=== PATIENT | female | born 1970 | race Caucasian/White ===

== ENCOUNTER 2021-07-02 13:07 | Emergency (ER) | payer BC ==
--- OUTSIDE RECORDS SUMMARY | 2021-07-02 13:10 | XMS REPORT | Continuity of Care Document ---
:1970 Author Organization [facility] t Address [address] [place] [address] Care Team Providers Name Role Phone Meghana Primary Care Physician Unavailable Chau HANEY Attending Clinician Anisha Attending Clinician Unavailable CHAU Attending Clinician Unavailable ADDI_ Attending Clinician Unavailable Kit Sarah Attending Clinician Unavailable Maricarmen Attending Clinician Unavailable Kathleen Attending Clinician Unavailable TIAGO Attending Clinician Unavailable Anisha Admitting Clinician Unavailable ADDI_ Admitting Clinician Unavailable Maricarmen Admitting Clinician Unavailable Kathleen Admitting Clinician Unavailable TIAGO Admitting Clinician Unavailable Payers Payer Name Policy Type Policy Number Effective Date Expiration Date S [place] [id number] 2019 00:[place]00 [place] CHO[place] [id number] 2013 00:00:00 (POS II) Problems This patient has no known problems. Allergies, Adverse Reactions, Alerts This patient has no known allergies or adverse reactions. Social History Social Habit Start Date Stop Date Quantity Comments Source Exposure to Not sure [facility] SARS-CoV-2 (event) Alcohol intake 2021-06-30 2021-06-30 Lifetime [facility] 00:00:00 00:00:00 non-drinker (finding) Tobacco use and 2021-05-17 2021-05-17 Smokeless tobacco [facility] exposure 00:00:00 00:00:00 non-user Sex Ass[birth year] At [birth year] [facility] 00:00:00 00:00:00 Smoking Status Start Date Stop Date Source Never smoked tobacco [facility] Medications Ordered Filled Start Stop Current Ordering Indication Dosage Frequency Signature Comments Components Source Medication Medication Date Date Medication? Clinician (SIG) Name Name furosemide Yes Take by [facility] (Lasix) 20 3-30 mouth if Healt h MG tablet 15:53: needed. 26 Reports she takes it if she feels increased pressure in abdomen or legs per Dr. Antonio's instructio ns Potassium Yes Take by UT Chloride 20 3-30 mouth if Heal th MEQ/15ML 15:52: needed. (10%) 37 Reports solution she takes with Furosemide 20mg, PRN Semaglutide 2021- No Inject UT (OZEMPIC, 1 3-30 -30 under the He alth MG/DOSE, 15:36: 00:00 skin. Once SC) 49 :00 a week aspirin 81 0 Yes QD 1 (one) UT MG chewable 3-30 time each Hea lth tablet 15:25: day. 06 digoxin Yes QD 1 (one) UT (Lanoxin) 3-30 time each Healt h 125 MCG 15:25: day. tablet 06 spironolact Yes Q.5D 2 (two) UT one 3-30 times a Health (Aldactone) 15:25: day. 25 MG 06 tablet etonogestre Yes 1{each} Q28D Insert 1 UT l-ethinyl 3-30 each into [facility] estradiol 15:25: the vagina (Nuvaring) 06 every 28 0.12-0.015 (twenty-ei MG/24HR ght) days. vaginal Insert ring vaginally and leave in place for 3 consecutiv e weeks, then remove for 1 week. metoprolol Yes 50mg Q.5D Take 50 mg U T succinate 1-07 by mouth 2 Heal th XL 00:00: (two) (Toprol-XL) 00 times a 50 MG 24 hr day. tablet amiodarone 2020-04 Yes Q.5D Take by UT (Pacerone) 2-15 mouth 2 Health 400 MG 00:00: (two) tablet 00 times a day. Entresto 2020-04 Yes Q.5D 2 (two) UT 49-51 MG 0-20 times a Health tablet 00:00: day. 00 Farxiga 5 2020-04 Yes QD 1 (one) UT MG 0-12 time each Health 00:00: day. 00 buPROPion Yes 1 (one) UT XL 9-20 time each Health (Wellbutrin 00:00: day in the XL) 150 MG 00 morning. 24 hr tablet Vital Signs Vital Name Observation Time Observation Value Comments Source Systolic blood pressure 2021-06-30 20:25:00 125 mm[Hg] [facility] Diastolic blood pressure 2021-06-30 20:25:00 69 mm[Hg] [facility] Heart rate 2021-06-30 20:25:00 80 /min [facility] Body height 2021-06-30 20:25:00 162.6 cm [facility] Body weight 2021-06-30 20:25:00 100.699 kg UT [facility] BMI 2021-06-30 20:25:00 38.11 kg/m2 [facility] Procedures Procedure Date / Time Performed Performing Clinician [facility] e ECG 12-LEAD 2021-06-30 20:25:00 Nico Ritchie [facility] Encounters Start End Encounter Admission Attending Care Care Encounter Source Date/Time Date/Time Type Type Clinicians Facility Department ID 2021-06-30 2021-06-30 Office GULSHAN Ritchie [id number] [place] 15:15:00 16:28:14 Visit Nico KIRAN [id number] [facility] [id number] 2021-06-15 2021-06-15 Outpatient [facility] PRIV PRIV [id number] [facility] 09:59:00 09:59:00 Dg [id number] Medica l 2021-05-07 2021-05-07 Outpatient [facility] [id number] [facility] 06:04:00 13:00:00 [facility] 2021-02-03 2021-02-03 Outpatient [facility] [id number] [facility] 05:41:00 15:28:00 [facility]ICO [facility]anez [facility] 2020-12-24 2020-12-24 Outpatient GONZALEZ_DO [facility] [id number] Silvio 03:08:00 03:08:00 SCOTT_ [id number] [facility] 2020-11-30 2020-11-30 Outpatient Yan_W MM[facility] MMG [id number] [place] 02:51:00 02:51:00 [facility] 2020-02-19 2020-02-19 Outpatient Kathleen [facility] MMG [id number] [place] 02:22:00 02:22:00 [facility]8 [facility] Results Test Description Test Time Test Comments Results Result Comments Source B-Type Natriuretic Peptide 2016-09-12 11:33:00 Test Item Value Reference Range Interpretation Comme nts B-Type Natriuretic Peptide (test code = 649562) <2.5 pg/mL 0.0-10 0.0 N Sed Rate ESR ([place])2016-09-09 00:24:00 Test Item Value Reference Range Interpretation Comments ESR (test code = HESR) 34 mm/Hr 0-20 H Comprehensive Metabolic [id number] 23:32:00 Test Item Value Reference Range Interpretation Comments Sodium (test code = 139 mmol/L 135-145 N NA) Potassium (test 2.8 mmol/L 3.5-5.1 LL READ BACK LA B code = K) VALUESVERIFIED BY REPEAT TESTING na @1131am 6/8/201 7 kms Chloride (test code 94 mmol/L 98-105 L = CL) Carbon Dioxide 27 mmol/L 22-29 N (test code = CO2) Glucose (test code 104 mg/dL 70-115 N = GLU) Blood Urea Nitrogen 9 mg/dL 6-20 N (test code = BUN) Creatinine (test 0.7 mg/dL 0.5-0.9 N code = CREAT) Calcium (test code 9.2 mg/dL 8.3-10.5 N = CA) Prot Total (test 7.8 g/dL 6.4-8.3 N code = TP) Albumin (test code 4.8 g/dL 3.5-5.2 N = ALB) A/G Ratio (test 1.6 Ratio code = AGRATIO) Globulin (test code 3.0 2.9-3.1 N = GLOB) Bili Total (test 0.4 mg/dL 0.1-0.9 N code = TBIL) Alk Phos (test code 51 U/L 35-104 N = APHOS) AST (test code = 20 U/L 1-32 N AST) ALT (test code = 18 U/L 1-33 N ALT) BUN/Creatinine 12.9 Ratio (test code = BCRATIO) Anion Gap (test 18 mmol/L 7-16 H code = AGAP) Estimated GFR (test >60 eGFR (es timated code = GFR) mL/min/1.73m2 Glomerular [place] tration Rate) is an est imated value,calculate d from the patient's s lucas creatinine usin g the MDRD equation.I t is NOT the patient 's actual GFR. The eGFR provides a more clinicallyusefu l measure of kidn ey disease than se rum creatinine alone.This calculation deborah es sex and race into a ccount, if the informat ionis provided. If th e race is not provided , and the patient isAfrican-Ameri can, multiply by 1.2 12. If sex is not prov ided, and thepatient is female, multipl y by 0.742. Results for patients <18 ye ars ofage have not been validated by th e MDRD study and shoul d be interpretedwith caution.eGFR Re sult Interpretation: eGFR > or = 60 is in t he Normal RangeeGF R < 60 may mean kidney diseaseeGFR < 1 5 may mean kidney failureRange s recommended by the National Kidney Foundation,http ://nkde p.nih.gov Lipid [id number] 23:32:00 Test Item Value Reference Range Interpretation Comments Cholesterol (test 247 mg/dL 0-200 H code = CHOL) Triglycerides (test 333 mg/dL 9-200 H code = TRIG) HDL (test code = 81 mg/dL 50-60 H HDL) Chol/HDL (test code 3.0 Ratio 0.0-4.4 N = CHOLPHDL) LDL, Calculated 99 0-130 N (NOTE)RISK O F HEART (test code = LDLC) DISEASEPu blished by [place] Heart AssociationAnal yte Optim al Boderline Increased RiskC HOL <200 200-239 >240TRI G <150 150-199 >200HDL Male: >60 <40HDL Female: >60 <50 LDL < 100 130-15 9 >160 LDL NEAR OPTIMAL IS 100- 129 VLDL (test code = 67 mg/dL 5-40 H VLDL) LDL/HDL (test code = 1 LDLPHDL) Thyroid Stimulating Hormone (TSH)2016-09-08 23:32:00 Test Item Value Reference Range Interpretation Comments TSH (test code = TSH) 2.24 mIU/mL 0.270-4.200 N CBC with [id number] 23:01:00 Test Item Value Reference Range Interpretation Comments WBC (test code = WBC) 9.3 K/cumm 4.4-10.5 N RBC (test code = RBC) 4.69 M/cumm 3.75-5.20 N Hemoglobin (test code = HGB) 14.1 gm/dL 12.2-14.8 N Hematocrit (test code = HCT) 45.0 % 36.5-44.4 H MCV (test code = MCV) 96.0 fL 80-100 N MCH (test code = MCH) 30.0 pg 27.0-32.5 N MCHC (test code = MCHC) 31.3 g/dL 32.0-37.5 L RDW (test code = RDW) 14.2 % 11.5-14.5 N Platelet Count (test code = 269 K/cumm 140-440 N PLTCT) MPV (test code = MPV) 11.3 fL Diff Method (test code = DIFFM) Auto Neutrophil (test code = NEUT) 59.8 % 36-70 N Lymphocyte (test code = LYMPH) 33.5 % 12-44 N Monocyte (test code = MONO) 4.7 % 0-11 N Eosinophil (test code = EOS) 1.5 % 0-7 N Basophil (test code = BASO) 0.5 % 0-2 N Neutro Abs (test code = ANEUT) 5.6 K/cumm 1.6-7.4 N Lymph Abs (test code = ALYMPH) 3.1 K/cumm 0.5-4.6 N Porter Abs (test code = AMONO) 0.4 K/cumm 0.0-1.2 N Eos Abs (test code = AEOS) 0.14 K/cumm 0.00-0.74 N Baso Abs (test code = ABASO) 0.1 K/cumm 0.00-0.21 N EKG Electrocardiogram [id number] [place] [address] Patient Name: David Coy Medical Record#: [id number] Address: [address] [place] [address] City/State/Zip: [place] [address]: Demetris Sarah MD Insurance: [facility] PPO Blue [place] /Age/Sex: 1970/50/F Self Pay Admit/Reg Date: 12/11/20 OrderingDr: Demetris Sarah MD [facility] PCP: Silviano Antonio MD Date of Service: 12/11/20 Order (s): EKG Electrocardiogram CPT Code: 17334 Report Number: [id number] Reason for Exam: ICD placement Sinus rhythm Left bundle branch block Summary: Abnormal ECG I44.7 Dictated By: Do aminah Douglass MD 12/11/20 1133 Signed By:Jesus Manuel Douglass MD 12/11/20 1604 TD/TT: 12/11/20 1133 Tech: [facility] cc: [email or web address]; L IBBA* Silviano Antonio MD; SACHIN North chest 1V [facility] [address] [place], [place] [id number] Patient Name: David Thompson i Medical Record#: [id number] Address: [address] City/State/Zip: [place] [address]: Demetris Sarah MD Insurance: [facility] PPO Blue [place] /Age/Sex: 1970/50/F Self Pay Admit/Reg Date: 12/11/20 OrderingDr: Demetris Sarah MD Location: [facility]/ PCP: Silviano Antonio MD Date of Service: 12/11/20 Order (s): XR chest 1V CPT Code: 17224 Report Number: [id number] Reason for Exam: ICD placement C3 TIME OF STUDY: 12/11/2020 11:38 AM CDT REASON FOR EXAM: ICD placement COMPARISON: None. FINDINGS: AP view of the chest was obtained. Support devices: Left-sided pacemaker/ICD in place with one lead overlying the RA and one lead overlying the RV. Lungs: Normal lung volume. No mass, or consolidation. Mild central vascular congestion. Pleura: No pleural effusion or pneumothorax. Heart and Mediastinum: There is mild cardiomegaly. Bones: Normal regional skeletal structures. IMPRESSION: 1. Mild cardiomegaly and central vascular congestion. 2. Left-sided pacemaker/ICD in place. No pneumothorax. Electronically signed by: Nathaniel Coronado MD 12/11/2020 11:44 AM CDT Dictated By: Nathaniel Coronado MD 12/11/20 1138 Signed By: Nathaniel Coronado MD 12/11/20 1138 TD/TT: Tech: [id number] cc: HANGAngel; STEFANY* Silviano Antonio MD; Demetris Sarah MDEKG Electrocardiogram [facility] [address] [place] [address] Patient Name: David Coy Medical Record#: [id number] Address: [address] City/State/Zip: [place] [address]: Demetris Sarah MD Insurance: [facility] PPO Blue [place] ice /Age/Sex: 1970/50/F Self Pay Admit/Reg Date: 12/11/20 OrderingDr: Demetris Sarah MD Location: [facility]/ PCP: Silviano Antonio MD Date of Service: 12/11/20 Order (s): EKG Electrocar diogram CPT Code: 59711 Report Number: [id number] Reason for Exam: ICD placement Sinus rhythm Nonspecific IVCD with LBBB PATTERN LVH with secondary repolarization abnormality Summary: Abnormal ECG I51.7 Dictated By: Jesus Manuel Douglass MD 12/11/20 0744 Signed By: Jesus Manuel Douglass MD 12/11/20 1604 TD/TT: 12/11/2044 Tech: [facility] cc: [id number]; NIRMALBA* Silviano Antonio MD; Demetris Sarah MD
[2021-07-02] MEDS ORDERED: CLOPIDOGREL 75 MG TABLET ONE (15:16)
[2021-07-02] MEDS ORDERED: FOLIC ACID 5 MG/ML VIAL ONE (15:17)
[2021-07-02] MEDS ORDERED: ASPIRIN 81 MG CHEWABLE TABLET ONE (15:18)
[2021-07-02 15:21] LABS: Absolute Lymphocytes (CBC) 2.7 K/uL (0.7-4.9); Hematocrit 39.6 % (36.0-45.0); Lymphocytes % 32.1 % (15.3-44.8); MPV 7.6 fL (7.6-11.3); RBC Red Blood Cell Count 4.28 M/uL (3.86-4.86)
--- NOTE | 2021-07-02 15:22 | ER ---
Nurse's Notes [facility] Name: Lucia Coy Age: 51 yrs Sex: Female : 1970 Arrival Date: 07/02/2021 Time: 13:08 Bed 27 Private MD: Diagnosis: Unqualified visual loss, left eye, normal vision right eye-resolved Presentation: 07/02 13:19 Chief complaint: Patient states: "I have dilated cardiomyopathy and its been giving me ab2 trouble. On Monday my defib went off and I went to the ER and they told me I had a heart attack, because my potassium and magnesium were too low. Today I was driving and my left eye went completely black, I couldn't see anything." Pt states this lasted approx 4 minutes, but is back to normal at this time. Pt denies chest pain. Pt states she is SOB. Coronavirus screen: Vaccine status: Patient reports receiving the 2nd dose of the covid vaccine. Client denies travel out of the [place] in the last 14 days. At this time, the client does not indicate any symptoms associated with coronavirus-19. Ebola Screen: Patient negative for fever greater than or equal to 101.5 degrees Fahrenheit, and additional compatible Ebola Virus Disease symptoms Patient denies exposure to infectious person. Patient denies travel to an Ebola-affected area in the 21 days before illness onset. No symptoms or risks identified at this time. Initial Sepsis Screen: Does the patient meet any 2 criteria? No. Patient's initial sepsis screen is negative. Does the patient have a suspected source of infection? No. Patient's initial sepsis screen is negative. Risk Assessment: Do you want to hurt yourself or someone else? Patient reports no desire to harm self or others. Onset of symptoms is unknown. 13:19 Method Of Arrival: Ambulatory ab2 13:19 Acuity: EDER 3 ab2 Triage Assessment: 13:27 General: Appears in no apparent distress. comfortable, Behavior is calm, cooperative, ab2 appropriate for age. Pain: Denies pain. EENT: No deficits noted. Neuro: Level of Consciousness is awake, alert, obeys commands, Oriented to person, place, time, situation, Appropriate for age [employer] are equal bilaterally. Cardiovascular: Reports shortness of breath, Denies chest pain. Respiratory: Reports shortness of breath cough that is. Historical: - Allergies: 13:25 No Known Allergies; ab2 - PMHx: 13:26 Dilated Cardiomyopathy; ab2 - Immunization history:: Adult Immunizations up to date. - Social history:: Smoking status: Patient denies any tobacco usage or history of. Screenin:09 Abuse screen: Denies threats or abuse. Denies injuries from another. Nutritional ld1 screening: No deficits noted. Tuberculosis screening: No symptoms or risk factors identified. Fall Risk None identified. Assessment: 15:09 General: Appears in no apparent distress. comfortable, Behavior is calm, cooperative, ld1 appropriate for age. Pain: Denies pain. Neuro: Level of Consciousness is awake, alert, obeys commands, Oriented to person, place, time, situation. Cardiovascular: Capillary refill < 3 seconds Patient's skin is warm and dry. Respiratory: Airway is patent Respiratory effort is even, unlabored. GI: Abdomen is round non-distended. : No signs and/or symptoms were reported regarding the genitourinary system. EENT: No signs and/or symptoms were reported regarding the EENT system. Derm: No signs and/or symptoms reported regarding the dermatologic system. Musculoskeletal: No signs and/or symptoms reported regarding the musculoskeletal system. 17:50 Reassessment: Patient appears in no apparent distress at this time. No changes from ld1 previously documented assessment. Patient and/or family updated on plan of care and expected duration. Pain level reassessed. Patient is alert, oriented x 3, equal unlabored respirations, skin warm/dry/pink. Vital Signs: 13:19 BP 117 / 59; Pulse 70; Resp 17; Temp 98.4(TE); Pulse Ox 99% on R/A; Weight 98.88 kg; ab2 Height 5 ft. 4 in. (162.56 cm); Pain 0/10; 15:09 BP 123 / 63; Pulse 70; Resp 19; Pulse Ox 100% on R/A; ld1 17:50 BP 119 / 70; Pulse 69; Resp 18; Pulse Ox 100% ; ld1 13:19 Body Mass Index 37.42 (98.88 kg, 162.56 cm) ab2 ED Course: 13:08 Patient arrived in ED. as 13:25 Triage completed. ab2 13:27 Arm band placed on right wrist. ab2 13:50 Gino Vickers PA is PHCP. cp 13:50 Christiano Mccoy MD is Attending Physician. cp 14:05 Susu Garcia, RN is Primary Nurse. ld1 14:34 CT Head Brain wo Cont In Process Unspecified. EDMS 15:09 Patient has correct armband on for positive identification. Placed in gown. Bed in low ld1 position. Call light in reach. Side rails up X2. cardiac monitor on. Pulse ox on. NIBP on. Door closed. Noise minimized. Warm blanket given. 15:09 No provider procedures requiring assistance completed. Inserted saline lock: 22 gauge ld1 in right antecubital area, using aseptic technique. Blood collected. 15:58 XRAY Chest (1 view) In Process Unspecified. EDMS 16:10 CT Head Angio In Process Unspecified. EDMS 16:10 CT Neck Angio In Process Unspecified. EDMS Administered Medications: 15:21 Drug: foLIC Acid 1 mg Route: IVPB; Site: right antecubital; ld1 15:21 Drug: Aspirin Chewable Tablet 81 mg Route: PO; ld1 15:21 Drug: PlaVIX (clopidogrel) 75 mg Route: PO; ld1 Outcome: 15:22 ER care complete, transfer ordered by MD. cp 18:12 Patient left the ED. ld1 Signatures: Dispatcher [employer] Melany Boyd as Gino Vickers PA PA cp Susu Garcia, RN RN ld1 Constantin Muñiz ab2
--- NOTE | 2021-07-02 15:22 | EDPHYS ---
Physician Documentation [facility] Name: Lucia Coy Age: 51 yrs Sex: Female : 1970 Arrival Date: 07/02/2021 Time: 13:08 Bed 27 Private MD: ED Physician Christiano Mccoy HPI: 07/02 14:25 This 51 yrs old Unknown Female presents to ER via Ambulatory with complaints of Loss Of cp Vision. 14:25 The patient is experiencing sudden loss of vision, to the left eye. cp 14:25 Onset: The symptoms/episode began/occurred today, at about 1239. Duration: the symptoms cp last 4 minute(s). Associated signs and symptoms: Pertinent positives: "tingling" to roof of mouth, Pertinent negatives: fever, chest pain, weakness, speech changes. Patient does not utilize any form of vision correction. Severity of symptoms: in the emergency department the symptoms have resolved. Historical: - Allergies: 13:25 No Known Allergies; ab2 - PMHx: 13:26 Dilated Cardiomyopathy; ab2 - Immunization history:: Adult Immunizations up to date. - Social history:: Smoking status: Patient denies any tobacco usage or history of. ROS: 14:30 Constitutional: Negative for body aches, chills, fever, poor PO intake. cp 14:30 Eyes: Positive for vision loss, of the left eye, Negative for discharge, pain, redness. cp 14:30 ENT: Negative for drainage from ear(s), ear pain, sore throat, difficulty swallowing, difficulty handling secretions. 14:30 Respiratory: Negative for cough, shortness of breath, wheezing. 14:30 Cardiovascular: Negative for chest pain, edema, palpitations. cp 14:30 Abdomen/GI: Negative for abdominal pain, nausea, vomiting, and diarrhea. cp 14:30 Neuro: Negative for altered mental status, headache, weakness. 14:30 All other systems are negative. Exam: 14:35 Constitutional: The patient appears in no acute distress, alert, awake, comfortable, cp non-diaphoretic, non-toxic, well developed, well nourished. 14:35 Head/Face: Normocephalic, atraumatic. cp 14:35 Eyes: Periorbital structures: appear normal, Pupils: equal, round, and reactive to light and accomodation, Extraocular movements: intact throughout, Conjunctiva: normal, no exudate, no injection, Sclera: no appreciated abnormality, Lids and lashes: appear normal, bilaterally, Visual norris: are intact. 14:35 ENT: External ear(s): are unremarkable, Nose: is normal, Mouth: Lips: moist, Oral mucosa: moist, Posterior pharynx: Airway: no evidence of obstruction, patent. 14:35 Neck: ROM/movement: is normal, is supple, without pain, no range of motions limitations, no nuchal rigidity. 14:35 Chest/axilla: Inspection: normal. 14:35 Cardiovascular: Rate: normal, Rhythm: regular. 14:35 Respiratory: the patient does not display signs of respiratory distress, Respirations: normal, no use of accessory muscles, no retractions, labored breathing, is not present, Breath sounds: are clear throughout, no decreased breath sounds, no stridor, no wheezing. 14:35 Abdomen/GI: Exam negative for discomfort, distension, guarding, Inspection: abdomen appears normal. 14:35 Back: pain, is absent, ROM is normal. 14:35 Skin: cellulitis, is not appreciated, no rash present. 14:35 Neuro: Orientation: to person, place \\T\\ time. Mentation: is normal, Cerebellar function: is grossly normal, Motor: moves all fours, strength is normal, Sensation: no obvious gross deficits. 14:50 ECG was reviewed by the Attending Physician. cp Vital Signs: 13:19 BP 117 / 59; Pulse 70; Resp 17; Temp 98.4(TE); Pulse Ox 99% on R/A; Weight 98.88 kg; ab2 Height 5 ft. 4 in. (162.56 cm); Pain 0/10; 15:09 BP 123 / 63; Pulse 70; Resp 19; Pulse Ox 100% on R/A; ld1 17:50 BP 119 / 70; Pulse 69; Resp 18; Pulse Ox 100% ; ld1 13:19 Body Mass Index 37.42 (98.88 kg, 162.56 cm) ab2 MDM: 14:08 Patient medically screened. cp 15:00 Differential diagnosis: Acute iritis of Acute glaucoma in retinal occlusion, CVA. cp 15:19 ED course: spoke with DR Kunz and DR Osborne who recommend transfer due to cp inability to perform MRI stroke protocol with patient's history of pacemaker/defibrillator. 15:56 Physician consultation: was contacted at 15:56, regarding regarding transfer, to [facility]. patient's condition, accepting physician will be DR Garcia, neurologist. 17:10 Data reviewed: vital signs, nurses notes, lab test result(s), EKG, radiologic studies, cp CT scan, plain films. 17:10 Test interpretation: by ED physician or midlevel provider: ECG. Counseling: I had a cp detailed discussion with the patient and/or guardian regarding: the historical points, exam findings, and any diagnostic results supporting the discharge/admit diagnosis, lab results, radiology results, the need to transfer to another facility, for higher level of care. 07/02 14:23 Order name: Basic Metabolic Panel; Complete Time: 15:50 07/02 17:09 Interpretation: Normal except: GFR 62; Reviewed. 07/02 14:23 Order name: CBC with Diff; Complete Time: 15:50 07/02 14:23 Order name: LFT's; Complete Time: 15:50 07/02 17:09 Interpretation: Normal except: GLOB 4.3; A/G 0.8. 07/02 14:23 Order name: Magnesium; Complete Time: 15:50 07/02 14:23 Order name: PT-INR; Complete Time: 15:50 07/02 14:23 Order name: Troponin HS; Complete Time: 15:50 07/02 14:23 Order name: XRAY Chest (1 view); Complete Time: 17:07 07/02 17:08 Interpretation: Report review. 07/02 14:23 Order name: Ptt, Activated; Complete Time: 15:50 07/02 14:23 Order name: CT Head Brain wo Cont cp 07/02 15:11 Order name: SARS-COV-2 RT PCR (Document "Date of Onset" if Symptomatic); Complete Time: em1 17:07/02 15:18 Order name: CT Head Angio; Complete Time: 17:07 cp 07/02 17:08 Interpretation: Report reviewed. cp 07/02 15:18 Order name: CT Neck Angio; Complete Time: 17:07 cp 07/02 17:08 Interpretation: Report reviewed. 07/02 15:19 Order name: Glucose, Ancillary Testing; Complete Time: 15:50 EDVA 07/02 14:23 Order name: EKG; Complete Time: 14:24 07/02 14:23 Order name: Cardiac monitoring; Complete Time: 14:24 07/02 14:23 Order name: EKG - Nurse/Tech; Complete Time: 15:09 07/02 14:23 Order name: IV Saline Lock; Complete Time: 15:09 07/02 14:23 Order name: Labs collected and sent; Complete Time: 15: 07/02 14:23 Order name: O2 Per Protocol; Complete Time: 14:24 cp 07/02 14:23 Order name: O2 Sat Monitoring; Complete Time: 14:24 cp EC:50 Rate is 75 beats/min. Rhythm is regular. MA interval is normal. QRS interval is cp prolonged at 148 msec. QT interval is normal. T waves are Inverted in leads aVL, aVR. Interpreted by me. Reviewed by me. Administered Medications: 15:21 Drug: foLIC Acid 1 mg Route: IVPB; Site: right antecubital; ld1 15:21 Drug: Aspirin Chewable Tablet 81 mg Route: PO; ld1 15:21 Drug: PlaVIX (clopidogrel) 75 mg Route: PO; ld1 Disposition: 07/03 09:00 Co-signature as Attending Physician, Christiano Mccoy MD I agree with the assessment and rn plan of care. Attestation: The patient's history, exam findings, diagnostics, and a summary of any interventions or procedures was reviewed in detail with Gino BOWLING. Disposition Summary: 07/02/21 15:22 Transfer Ordered Transfer Location: [facility] cp Reason: Higher level of care cp Condition: Stable cp Problem: new cp Symptoms: are resolved cp Accepting Physician: DR Espinosa(07/02/21 18:12) ld1 Diagnosis - Unqualified visual loss, left eye, normal vision right eye - resolved cp Forms: - Medication Reconciliation Form cp - SBAR form cp Signatures: Dispatcher [employer] Christiano Celaya MD MD rn Page, Corey, PA PA cp Dibbern, Lauren, RN RN ld1 Constantin Muñiz ab2 Corrections: (The following items were deleted from the chart) 07/02 15:53 15:22 Doctor cp cp 15:53 15:22 Amaurosis fugax - left eye cp cp 15:55 15:53 Doctor cp cp 16:11 15:55 DR Garcia cp cp 18:12 16:11 DR Espinosa cp ld1
[2021-07-02 15:25] LABS: Protime INR 0.96
[2021-07-02 15:36] LABS: Albumin 3.6 g/dL (3.4-5.0); Bilirubin Direct 0.1 mg/dL (0-0.2); Magnesium 2.4 mg/dL (1.8-2.4)
[2021-07-02 15:41] LABS: Bilirubin Total 0.3 mg/dL (0.2-1.0); Protein, Total 7.9 g/dL (6.4-8.2); Troponin High Sensitivity 13.5 pg/mL (<58.9)
--- NOTE | 2021-07-02 16:46 | RAD REPORT ---
EXAM DESCRIPTION: CT - Neck Angio - 07/02/2021 4:12 pm CLINICAL HISTORY: history of left vision loss TECHNIQUE: During dynamic enhancement using nonionic IV contrast, axial 2 mm thick images of the nec k were obtained. Sagittal and axial reconstruction images were generated using MIP technique and revi ewed. All CT scans are performed using dose optimization technique as appropriate and may include automated exposure control or mA/KV adjustment according to patient size. COMPARISON: CT head same date, CT angio head same date FINDINGS: No aneurysm or vascular malformation identified. Aortic arch is 3 vessel configuration. No great vessel origin stenoses identified. The bilateral comm on carotid and internal carotid arteries are unremarkable. Left vertebral artery is dominant with no origins stenosis. No left vertebral artery dissection seen. Right vertebral artery origin is unremark able. The right vertebral artery is much smaller in size than the left. The contrast appears to fill the full lumen of the small right vertebral artery. Right vertebral artery dissection is not suspecte d. The right vertebral artery terminates at the PICA. This configuration would also support that the small right vertebral artery size is variant anatomy rather than acute vascular injury. No significant or measurable atherosclerotic change. No focal stenoses. IMPRESSION: As detailed above, CT angio neck examination shows no acute or emergent finding.
--- NOTE | 2021-07-02 16:49 | RAD REPORT ---
EXAM DESCRIPTION: CT - Head angio - 07/02/2021 4:12 pm CLINICAL HISTORY: history of left eye vision loss TECHNIQUE: During dynamic enhancement using nonionic IV contrast, axial 1 millimeter thick images of the head were obtained. Sagittal and axial reconstruction images were generated using MIP technique and reviewed. All CT scans are performed using dose optimization technique as appropriate and may include automated exposure control or mA/KV adjustment according to patient size. COMPARISON: CT head same date, CT angio neck same date FINDINGS: No aneurysm or vascular malformation identified. No focal abnormality seen at the expecte d origin of the left ophthalmic artery. Major venous sinuses are patent. No stenosis, named branch occlusion or vasculitis findings. Left vertebral artery is dominant. A very diminutive right vertebral artery is seen. As detailed on the angio neck examination this is believe d to be normal anatomic variation and not right vertebral artery dissection. Distal left vertebral ar niraj is unremarkable. Patient has normal anatomic variants. There is absence of the right anterior cerebral artery A1 segme nt. Anterior communicating artery is present with the right JONELLE supplied from the left-side circulati on. Patient has a large right posterior communicating artery providing the right posterior cerebral a rtery distribution. The right P1 INTERLOCKING TOWER OPERATOR segment is not identifiable. No measurable atherosclerotic calci fication in the distal internal carotid arteries. IMPRESSION: Negative CT angio head examination for acute or significant finding. No significant atherosclerotic changes. Patient has several anatomic normal variants that are detaile d in the body of the report.
--- NOTE | 2021-07-02 16:51 | RAD REPORT ---
EXAM DESCRIPTION: RAD - Chest Single View - 07/02/2021 3:56 pm CLINICAL HISTORY: CHEST PAIN COMPARISON: None TECHNIQUE: AP portable chest image was obtained 07/02/2021 3:56 pm . FINDINGS: Lungs are clear. Pacemaker/defibrillator battery pack and wires obscure much of the mid le ft chest. Failure and volume overload are not suspected. Heart and vasculature are normal. No measura ble pleural effusion and no pneumothorax. No acute bony abnormality seen. No acute aortic findings combs spected. IMPRESSION: No acute cardiopulmonary process.
--- NOTE | 2021-07-02 17:11 | RAD REPORT ---
EXAM DESCRIPTION: CT - Head Brain Wo Cont - 07/02/2021 3:36 pm CLINICAL HISTORY: left eye vision loss COMPARISON: No comparisons TECHNIQUE: Axial 5 mm thick images of the head were obtained without IV contrast. All CT scans are performed using dose optimization technique as appropriate and may include automated exposure control or mA/KV adjustment according to patient size. FINDINGS: No intracranial hemorrhage, mass, edema or shift of mid-line structures. No cortical level infarction seen. No cortical edema or sulcal effacement. No atrophy or measurable chronic ischemic c hanges identifiable. No abnormal extra-axial fluid collections. Ventricles are normal. Mastoid air cells and visualized portions of the paranasal sinuses are clear. No acute bony findings. Final written report was delayed due to technical issues with the [employer] IT systems. Preliminary report was telephoned to the referring clinician at the time of the study. The images were initially availa ble for viewing only on the CT suite monitors. IMPRESSION: Negative non-contrast CT head examination.
[2021-07-02 19:04] VITALS: TEMP 98.4
[2021-07-02 19:05] VITALS: O2SAT 100
[2021-07-02 19:11] VITALS: BP 119/70
--- NOTE | 2021-07-05 11:19 | EKG ---
Test Date: 2021-07-02 Test Time: 14:43:39 [employer]: [facility] MEASUREMENT RESULTS: Intervals: Rate: 75 WA: 154 QRSD: 148 QT: 480 QTc: 536 Mereta: P: 73 WA: 154 QRS: -63 T: 81 INTERPRETIVE STATEMENTS: Normal sinus rhythm Dbnct-Bbdaiffqi-Kemph Abnormal ECG No previous ECG available for comparison Electronically Signed On 07-05-21 11:13:29 CDT by Elroy Thompson
== END 2021-07-02 18:12 | disposition short-term general hospital (02) ==
LOC: ER 13:07
DX: H54.62 Unqualified visual loss, left eye, normal vision right eye (principal); I42.0 Dilated cardiomyopathy; Z20.822 Contact with and (suspected) exposure to COVID-19
CPT/HCPCS: 93005; 85025; 80048; 36415; 83735; 85610; 82947; 80076; 85730; 84484; 70450; 70496; 70498; 71045; 96374; 99284; U0003; Q9967